=== PATIENT | male | born 1955 ===

== ENCOUNTER 2024-06-30 14:15 | Outpatient (RCR) | payer MEDICARE, SELFPAY ==
[2024-04-07 13:04] VITALS: BMI 32.4
[2024-04-07 14:26] VITALS: BMI 32.4
[2024-06-21 13:05] VITALS: BMI 34.2
[2024-06-21 13:09] VITALS: BMI 34.2
== END 2024-07-06 23:59 | disposition home or self-care (01) ==
LOC: ANHDMC 14:15
PROVIDERS: Visit Provider Internal Medicine
DX: E11.9 Type 2 diabetes mellitus without complications (principal); H54.7 Unspecified visual loss; Z71.3 Dietary counseling and surveillance; Z71.89 Other specified counseling
CPT/HCPCS: 97802; 97803; G0108

== ENCOUNTER 2024-09-27 13:00 | Outpatient (RCR) | payer MEDICARE, SELFPAY | END 2024-10-17 09:50 | disposition home or self-care (01) | LOC: ANHDMC 13:00 | PROVIDERS: Visit Provider Internal Medicine | DX: E11.65 Type 2 diabetes mellitus with hyperglycemia (principal); H54.7 Unspecified visual loss; Z71.89 Other specified counseling | CPT/HCPCS: G0108 ==

== ENCOUNTER 2024-11-17 12:26 | Outpatient (RCR) | payer MEDICARE, SELFPAY | END 2025-02-15 23:59 | disposition home or self-care (01) | LOC: ANHDMC 12:26 | PROVIDERS: Visit Provider Internal Medicine | DX: E11.9 Type 2 diabetes mellitus without complications (principal); H54.7 Unspecified visual loss; Z71.89 Other specified counseling | CPT/HCPCS: G0108 ==

== ENCOUNTER 2025-02-23 12:51 | Outpatient (RCR) | payer MEDICARE, SELFPAY | END 2025-05-24 23:59 | disposition home or self-care (01) | LOC: ANHDMC 12:51 | PROVIDERS: Visit Provider Internal Medicine | DX: E11.65 Type 2 diabetes mellitus with hyperglycemia (principal); H54.7 Unspecified visual loss; E78.5 Hyperlipidemia, unspecified; I10 Essential (primary) hypertension; Z71.89 Other specified counseling | CPT/HCPCS: G0108 ==

== ENCOUNTER 2025-06-01 12:54 | Outpatient (RCR) | payer MEDICARE, SELFPAY | END 2025-08-21 10:51 | disposition home or self-care (01) | LOC: ANHDMC 12:54 | PROVIDERS: PCP Nurse Practitioner Family; Visit Provider Internal Medicine | DX: E11.65 Type 2 diabetes mellitus with hyperglycemia (principal); Z71.89 Other specified counseling; Z71.3 Dietary counseling and surveillance | CPT/HCPCS: G0108 ==